=== PATIENT | male | born 1940 | race Caucasian/White ===

== ENCOUNTER 2018-05-10 17:51 | Emergency (ER) | payer BC, MEDICARE ==
--- NOTE | 2018-05-10 18:34 | ER Document Report ---
ED Medical Screen (RME) - General Chief Complaint: Headache Stated Complaint: HEADACHE Time Seen by Provider: 05/10/18 18:29 Notes: Patient is a 77-year-old male with history of atrial fibrillation on Eliquis that presents to the emergency department for chief complaint of palpitations and headache. Patient states he had a headache yesterday evening and took Tylenol, that seemed to help he woke up and the headache was still present so he took some more Tylenol and has dissipated to a degree, he went to see his primary care office, and today he was noted to have a fast heart rate on EKG so they advised him to come to the ED, he states his usual heart rates in the 70s, he was in the point he is in the office. ROS: Other than noted above, the 12 point review of systems was reviewed with the patient and were negative, all pertinent findings are included in the HPI. PHYSICAL EXAMINATION: Vital signs reviewed. GENERAL: Well-appearing, well-nourished and in no acute distress. HEAD: Atraumatic, normocephalic. EYES: Pupils equal round extraocular movements intact, conjunctiva are normal. ENT: Nares patent NECK: Normal range of motion CV: Heart rate tachycardic, irregular rhythm. LUNGS: No respiratory distress Musculoskeletal: Normal range of motion NEUROLOGICAL: Normal speech PSYCH: Normal mood, normal affect. MDM: Patient seen and examined for rapid initial assessment. Vital signs reviewed. A comprehensive ED assessment and evaluation of the patient, analysis of test results and completion of the medical decision making process will be conducted by additional ED providers. *Note is created using voice recognition software and may contain spelling, syntax or grammatical errors. TRAVEL OUTSIDE OF THE [place] IN LAST 30 DAYS: No - Related Data Allergies/Adverse Reactions: shellfish derived Allergy (Verified 05/10/18 17:57) Physical Exam - Vital signs Vitals: Temp Pulse Resp BP Pulse Ox 98.4 F 117 H 18 153/91 H 97 05/10/18 18:18 05/10/18 18:18 05/10/18 18:18 05/10/18 18:18 05/10/18 18:18 Course - Vital Signs Vital signs: Temp Pulse Resp BP Pulse Ox 98.4 F 117 H 18 153/91 H 97 05/10/18 18:18 18 18:18 05/10/18 18:18 05/10/18 18:18 05/10/18 18:18
[2018-05-10] MEDS ORDERED: METOPROLOL TARTRATE PF/INJ 5 MG/5 ML SDV IV ONE (18:42)
--- NOTE | 2018-05-10 19:04 | RADIOLOGY REPORT (SQ) ---
EXAM DESCRIPTION: CHEST SINGLE VIEW COMPLETED DATE/TIME: 05/10/2018 6:56 pm REASON FOR STUDY: tachycardia COMPARISON: None. EXAM PARAMETERS: NUMBER OF VIEWS: One view. TECHNIQUE: Single frontal radiographic view of the chest acquired. RADIATION DOSE: NA LIMITATIONS: None. FINDINGS: LUNGS AND PLEURA: No opacities, masses or pneumothorax. No pleural effusion. MEDIASTINUM AND HILAR STRUCTURES: No masses. Contour normal. HEART AND VASCULAR STRUCTURES: Heart normal in size. Normal vasculature. BONES: No acute findings. HARDWARE: None in the chest. OTHER: No other significant finding. IMPRESSION: NO ACUTE RADIOGRAPHIC FINDING IN THE CHEST. TECHNICAL DOCUMENTATION: JOB ID: [id number] [employer]- All Rights Reserved Reading location - IP/workstation name: [email or web address]
--- NOTE | 2018-05-10 19:11 | RADIOLOGY REPORT (SQ) ---
EXAM DESCRIPTION: CT HEAD WITHOUT COMPLETED DATE/TIME: 05/10/2018 7:00 pm REASON FOR STUDY: headache, on eliquis, no injury COMPARISON: None. TECHNIQUE: Axial images acquired through the brain without intravenous contrast. Images reviewed wi th bone, brain and subdural windows. Additional sagittal and coronal reconstructions were generated. Images stored on PACS. All CT scanners at this facility use dose modulation, iterative reconstruction, and/or weight based d osing when appropriate to reduce radiation dose to as low as reasonably achievable (ALARA). [facility]: Dose Right [facility]: CareDose [facility]: Dose Right [facility]: Teradose 4D [facility]: [employer] Mobile RADIATION DOSE: CT Rad equipment meets quality standard of care and radiation dose reduction techniq ues were employed. CTDIvol: 48.5 mGy. DLP: 878 mGy-cm. mGy. LIMITATIONS: None. FINDINGS: VENTRICLES: Normal size and contour. CEREBRUM: No masses. No hemorrhage. No midline shift. No evidence for acute infarction. Normal gra y/white matter differentiation. No areas of low density in the white matter. CEREBELLUM: No masses. No hemorrhage. No alteration of density. No evidence for acute infarction. EXTRAAXIAL SPACES: No fluid collections. No masses. ORBITS AND GLOBE: No intra- or extraconal masses. Normal contour of globe without masses. CALVARIUM: No fracture. PARANASAL SINUSES: No fluid or mucosal thickening. SOFT TISSUES: No mass or hematoma. OTHER: No other significant finding. IMPRESSION: NORMAL BRAIN CT WITHOUT CONTRAST. EVIDENCE OF ACUTE STROKE: NO. COMMENT: Quality ID # [id number]: Final reports with documentation of one or more dose reduction techniques (e.g., Automated exposure control, adjustment of the mA and/or kV according to patient size, use of iterative reconstruction technique) TECHNICAL DOCUMENTATION: JOB ID: [id number] [employer]- All Rights Reserved Reading location - IP/workstation name: [email or web address]
[2018-05-10 20:35] LABS: ABSOLUTE BASOPHILS # (AUTO) 0.1 10^3/uL (0.0-0.2); ABSOLUTE EOSINOPHILS # (AUTO) 0.1 10^3/uL (0.0-0.6); ABSOLUTE LYMPHOCYTES (AUTO) 1.3 10^3/uL (0.5-4.7); ABSOLUTE MONOCYTES (AUTO) 0.7 10^3/uL (0.1-1.4); ABSOLUTE NEUT (AUTO) 7.9 10^3/uL (1.7-8.2); BASOPHILS % (AUTO) 0.7 % (0-2); EOSINOPHILS % (AUTO) 1.5 % (0-6); HEMATOCRIT 42.1 % (37.9-51.0); HEMOGLOBIN 14.7 g/dL (13.5-17.0); LYMPHOCYTES % (AUTO) 12.8 % (13-45); MEAN CORPUSCULAR HEMOGLOBIN 28.8 pg (27.0-33.4); MEAN CORPUSCULAR HGB CONC 34.9 g/dL (32.0-36.0); MEAN CORPUSCULAR VOLUME 83 fl (80-97); MONOCYTES % (AUTO) 7.1 % (3-13); PLATELET COUNT 260 10^3/uL (150-450); RED BLOOD COUNT 5.11 10^6/uL (4.35-5.55); RED CELL DISTRIBUTION WIDTH 14.1 % (11.5-14.0); SEGMENTED NEUTROPHILS % (AUTO) 77.9 % (42-78); TOTAL CELLS COUNTED % (AUTO) 100 %; WHITE BLOOD COUNT 10.2 10^3/uL (4.0-10.5)
[2018-05-10 20:44] LABS: INTERNATIONAL RATION (INR) 1.04; PROTHROMBIN TIME 14.1 SEC (11.4-15.4)
[2018-05-10 20:45] LABS: PARTIAL THROMBOPLASTIN TIME 29.2 SEC (23.5-35.8)
--- NOTE | 2018-05-10 21:04 | EKG REPORT ---
SEVERITY:- ABNORMAL ECG - ATRIAL FLUTTER WITH 2:1 [address] LAD, CONSIDER LEFT ANTERIOR FASCICULAR BLOCK ABNRM R PROG, CONSIDER ASMI OR LEAD PLACEMENT : Confirmed by: Tamia Perea MD 10-May-2018 21:03:38
[2018-05-10 21:18] LABS: ALANINE AMINOTRANSFERASE 25 U/L (21-72); ALBUMIN 4.1 g/dL (3.5-5.0); ALKALINE PHOSPHATASE 46 U/L (38-126); ANION GAP 13 (5-19); ASPARTATE AMINO TRANSFERASE 28 U/L (17-59); BILIRUBIN,DIRECT 0.3 mg/dL (0.0-0.4); BILIRUBIN,TOTAL 0.8 mg/dL (0.2-1.3); BLOOD UREA NITROGEN 14 mg/dL (7-20); CALCIUM 9.3 mg/dL (8.4-10.2); CARBON DIOXIDE 24 mmol/L (22-30); CHLORIDE 99 mmol/L (98-107); GLUCOSE 220 mg/dL (75-110); POTASSIUM 4.5 mmol/L (3.6-5.0); SODIUM 135.8 mmol/L (137-145); TOTAL PROTEIN 6.7 g/dL (6.3-8.2)
--- NOTE | 2018-05-10 21:49 | ER Document Report ---
ED General - General Chief Complaint: Headache Stated Complaint: HEADACHE Time Seen by Provider: 05/10/18 18:29 Notes: Very pleasant 77-year-old male with past medical history of paroxysmal A. fib status post ablation, hypertension, insulin-dependent diabetes mellitus, and diverticulosis presents to the emergency department for headache that started 3 days ago. He said it initially was very severe and was located in the back of his head. He took an aspirin for the pain, went to bed and there were no issues. He woke up and the headache has lingered since then so his daughter who is an internal med doc told him to go to the urgent care. The urgent care then transferred him here. He denies any dizziness, lightheadedness, vision changes, nausea, vomiting, dyspnea, chest pain, any other symptoms. TRAVEL OUTSIDE OF THE [place] IN LAST 30 DAYS: No - Related Data Allergies/Adverse Reactions: shellfish derived Allergy (Verified 05/10/18 17:57) Past Medical History - Social History Smoking Status: Never Smoker Family History: Reviewed & Not Pertinent Patient has suicidal ideation: No Patient has homicidal ideation: No - Past Medical History Cardiac Medical History: Reports: Hx Atrial Fibrillation, Hx Hypertension Renal/ Medical History: Denies: Hx Peritoneal Dialysis Review of Systems - Review of Systems Constitutional: See HPI EENT: See HPI Cardiovascular: See HPI Respiratory: See HPI Gastrointestinal: See HPI Genitourinary: See HPI Male Genitourinary: No symptoms reported Musculoskeletal: No symptoms reported Skin: No symptoms reported Hematologic/Lymphatic: No symptoms reported Neurological/Psychological: No symptoms reported Physical Exam - Vital signs Vitals: Temp Pulse Resp BP Pulse Ox 98.4 F 117 H 18 153/91 H 97 05/10/18 18:18 05/10/18 18:18 05/10/18 18:18 05/10/18 18:18 05/10/18 18:18 - Notes Notes: Reviewed vital signs and nursing note as charted by RN. CONSTITUTIONAL: Well-appearing, well-nourished, acting appropriately for age HEAD: Normocephalic, atraumatic, no swelling EYES: PERRL, Conjunctivae clear, no drainage, EOMI, no scleral icterus ENT: External ears without lesions, External auditory canal is patent, airway patent, mucous membranes pink and moist NECK: Supple, no cervical lymphadenopathy, no masses CARD: Regular rate and rhythm, no murmurs, no rubs, no gallops, capillary refill < 2 seconds, symmetric pulses RESP: The lungs are clear to auscultation bilaterally, no wheezing, no rales, no rhonchi. Respiratory rate and effort are normal, normal chest excursion. No respiratory distress, no retractions, no stridor, no nasal flaring, no accessory muscle use. ABD/GI: Normal bowel sounds, non-distended, soft, non-tender, no rebound, no guarding, no palpable organomegaly EXT: Normal ROM in all joints, non-tender to palpation, no effusions, no edema SKIN: Normal color for age and race, warm, dry, good turgor, no acute lesions noted NEURO: No facial asymmetry, moves all extremities equally, motor and sensory function intact Course - Re-evaluation Re-evalutation: 05/10/18 21:46 77-year-old male with hypertension, paroxysmal A. fib status post ablation who presented in a flutter, IDDM who takes 96 total units of insulin a day, and diverticulosis presents with headache. He was given 5 mg of metoprolol for rapid heart rate of 128 upon initial presentation. Repeat EKG showed a flutter but heart rate reduced to 70. CT head performed and negative for ischemia or bleed. Lab work overall unremarkable, blood glucose 220 on chemistry. Of note EMS did an Accu-Chek and blood glucose was 400. Initial troponin negative, second troponin is being drawn now. 05/10/18 21:49 05/10/18 23:26 Reevaluated patient and he is feeling much better and without a headache. He has 2 negative troponins, negative CT head, and lab work was overall normal. He is currently tachycardic. I discussed his case with Dr. Shah and Dr. Shah recommends giving him a course of metoprolol 25 mg p.o. and monitor to see if his heart rate goes down. 05/11/18 00:28 Heart rate is now ranging between 95 and 105. Patient states he does have close follow-up and does have an upcoming appointment. Patient with a normal neurologic exam, no focal deficits, no ataxia. At this point it is safe for the patient to discharge with close follow-up. - Vital Signs Vital signs: Temp Pulse Resp BP Pulse Ox 98.4 F 117 H 16 139/80 H 96 05/10/18 18:18 05/10/18 18:18 05/10/18 20:20 05/10/18 22:03 05/10/18 22:03 - Laboratory Result Diagrams: 05/10/18 20:20 05/10/18 20:20 Laboratory results interpreted by me: 05/10/18 05/10/18 05/10/18 20:20 20:20 21:40 RDW 14.1 H Lymphocytes % 12.8 L Sodium 135.8 L Glucose 220 H Urine Glucose (UA) >=500 H Ur Leukocyte Esterase SMALL H Discharge - Discharge Clinical Impression: Tachycardia Headache Qualifiers: Headache type: unspecified Headache chronicity pattern: acute headache Intractability: not intractable Qualified Code(s): R51 - Headache Atrial flutter Qualifiers: Atrial flutter type: unspecified Qualified Code(s): I48.92 - Unspecified atrial flutter Condition: Good Disposition: HOME, SELF-CARE Instructions: Headache ([facility]), Atrial Fibrillation ([facility]) Additional Instructions: You are seen in the emergency department this evening for headache. Upon arrival your in a heart rhythm and on his atrial flutter were given medication to slow down your rate. You are also given a medication taken by mouth called metoprolol that also helps to lower your heart rate. It is very important to call your primary doctor tomorrow in follow-up and let them know that you are in the emergency department and that you need to be seen for follow-up care. If you develop any lightheadedness, dizziness, weakness on one side, severe headache, shortness of breath, chest pain, nausea, vomiting please immediately return to the emergency department.
[2018-05-10 22:22] VITALS: BP 139/80
[2018-05-10 22:29] LABS: APPEARANCE,URINE CLEAR; BILIRUBIN,URINE NEGATIVE (NEGATIVE); COLOR,URINE STRAW; GLUCOSE, URINE >=500 mg/dL (NEGATIVE); KETONES,URINE NEGATIVE (NEGATIVE); LEUKOCYTE ESTERASE,URINE SMALL (NEGATIVE); NITRITE,URINE NEGATIVE (NEGATIVE); PROTEIN,URINE NEGATIVE (NEGATIVE); URINE SPECIFIC GRAVITY 1.009; UROBILINOGEN,URINE NEGATIVE mg/dL (<2.0)
[2018-05-10] MEDS ORDERED: METOPROLOL TARTRATE 25 MG TABLET PO ONE (23:28)
[2018-05-11] MEDS ORDERED: METOPROLOL TARTRATE 50 MG TABLET PO ONE (00:38)
== END 2018-05-11 01:02 | disposition home or self-care (01) ==
LOC: ER 17:51
DX: R51 Headache (principal); R00.0 Tachycardia, unspecified; I48.92 Unspecified atrial flutter; I48.91 Unspecified atrial fibrillation; I10 Essential (primary) hypertension; E11.9 Type 2 diabetes mellitus without complications; Z79.4 Long term (current) use of insulin
CPT/HCPCS: 93005; 99285; 96374; 36415; 82962; 85025; 85610; 85730; 80053; 81001; 84484; 71045; 70450; 93010; J3490

== ENCOUNTER 2018-09-08 14:36 | Inpatient (IN) | payer BC, MEDICARE ==
[2018-09-08] MEDS ORDERED: NORMAL SALINE 1000 ML 1,000 ML IV ONE (15:12)
[2018-09-08] MEDS ORDERED: ONDANSETRON HCL INJ/PF 4 MG/2 ML SDV IV ONE (15:12)
--- NOTE | 2018-09-08 15:13 | ER Document Report ---
ED Medical Screen (RME) - General Chief Complaint: Abdominal Pain Stated Complaint: ABDOMINAL PAIN Time Seen by Provider: 09/08/18 15:05 TRAVEL OUTSIDE OF THE [place] IN LAST 30 DAYS: No - HPI Notes: 09/08/18 15:11 Patient is a 78-year-old male with history of A. fib and on Eliquis, insulin dependant DM, hypertension who presents to the emergency department complaining of abdominal distention, nausea/vomiting that began over the past couple days. Denies SANTOS, fever, neck pain, URI, CP, SOB, or rash. I have treated and performed a rapid initial assessment of this patient. A comprehensive ED assessment and evaluation of the patient, analysis of test results and completion of medical decision making process will be conducted by additional ED providers. PHYSICAL EXAMINATION: GENERAL: Well-appearing, well-nourished and in no acute distress. A&Ox4. Answers questions appropriately. LUNGS: Breath sounds clear to auscultation bilaterally and equal. No wheezes rales or rhonchi. HEART: Regular rate and rhythm without murmurs, rubs, gallops. ABDOMEN: + distention and generalized tenderness. BS present - Related Data Allergies/Adverse Reactions: shellfish derived Allergy (Verified 09/08/18 14:37) Past Medical History - Social History Chew tobacco use (# tins/day): No Frequency of alcohol use: None Drug Abuse: None, Prescription drugs - Past Medical History Cardiac Medical History: Reports: Hx Atrial Fibrillation, Hx Hypertension Endocrine Medical History: Reports: Hx Diabetes Mellitus Type 2 Renal/ Medical History: Denies: Hx Peritoneal Dialysis GI Medical History: Reports: Hx Hiatal Hernia Past Surgical History: Reports: Hx Bowel Surgery - 1999 Physical Exam - Vital signs Vitals: Temp Pulse Resp BP Pulse Ox 97.5 F 146 H 15 138/91 H 97 09/08/18 14:41 09/08/18 14:41 09/08/18 14:41 09/08/18 14:41 09/08/18 14:41 Course - Vital Signs Vital signs: Temp Pulse Resp BP Pulse Ox 97.5 F 146 H 15 138/91 H 97 09/08/18 14:41 09/08/18 14:41 09/08/18 14:41 09/08/18 14:41 09/08/18 14:41
[2018-09-08 15:57] LABS: ABSOLUTE LYMPHOCYTES (AUTO) 0.6 10^3/uL (0.5-4.7); ABSOLUTE MONOCYTES (AUTO) 0.6 10^3/uL (0.1-1.4); ABSOLUTE NEUT (AUTO) 4.8 10^3/uL (1.7-8.2); BASOPHILS % (AUTO) 0.4 % (0-2); EOSINOPHILS % (AUTO) 0.6 % (0-6); HEMATOCRIT 41.5 % (37.9-51.0); HEMOGLOBIN 14.4 g/dL (13.5-17.0); MEAN CORPUSCULAR HEMOGLOBIN 28.5 pg (27.0-33.4); MEAN CORPUSCULAR HGB CONC 34.7 g/dL (32.0-36.0); MEAN CORPUSCULAR VOLUME 82 fl (80-97); MONOCYTES % (AUTO) 10.4 % (3-13); PLATELET COUNT 248 10^3/uL (150-450); RED BLOOD COUNT 5.05 10^6/uL (4.35-5.55); RED CELL DISTRIBUTION WIDTH 14.3 % (11.5-14.0); SEGMENTED NEUTROPHILS % (AUTO) 78.6 % (42-78); TOTAL CELLS COUNTED % (AUTO) 100 %; WHITE BLOOD COUNT 6.1 10^3/uL (4.0-10.5)
[2018-09-08 16:12] LABS: INTERNATIONAL RATION (INR) 1.14; PROTHROMBIN TIME 15.2 SEC (11.4-15.4)
[2018-09-08 16:13] LABS: PARTIAL THROMBOPLASTIN TIME 29.3 SEC (23.5-35.8)
[2018-09-08 16:25] LABS: ALANINE AMINOTRANSFERASE 28 U/L (21-72); ALKALINE PHOSPHATASE 47 U/L (38-126); ANION GAP 14 (5-19); ASPARTATE AMINO TRANSFERASE 28 U/L (17-59); BILIRUBIN,DIRECT 0.3 mg/dL (0.0-0.4); BILIRUBIN,TOTAL 0.7 mg/dL (0.2-1.3); BLOOD UREA NITROGEN 16 mg/dL (7-20); CALCIUM 9.7 mg/dL (8.4-10.2); CARBON DIOXIDE 26 mmol/L (22-30); CHLORIDE 97 mmol/L (98-107); GLUCOSE 216 mg/dL (75-110); LIPASE 119.6 U/L (23-300); POTASSIUM 4.1 mmol/L (3.6-5.0); SODIUM 136.6 mmol/L (137-145); TOTAL PROTEIN 6.6 g/dL (6.3-8.2)
--- NOTE | 2018-09-08 16:56 | RADIOLOGY REPORT (SQ) ---
EXAM DESCRIPTION: ACUTE ABDOMEN SERIES COMPLETED DATE/TIME: 09/08/2018 4:48 pm REASON FOR STUDY: abd distention/pain, tachycardic COMPARISON: None. NUMBER OF VIEWS: Three views. TECHNIQUE: Frontal chest, supine abdomen and upright/decubitus abdomen radiographic images acquired. LIMITATIONS: None. FINDINGS: CHEST: Lungs clear of infiltrates. FREE AIR: None. No abnormal gas collections. BOWEL GAS PATTERN: There multiple dilated small bowel loops with air-fluid levels. No obvious coloni c distention. CALCIFICATIONS: No suspicious calcifications. HARDWARE: None in the abdomen. SOFT TISSUES: No gross mass or suggestion of organomegaly. BONES: No acute fracture. No worrisome bone lesions. OTHER: No other significant finding. IMPRESSION: Proximal colonic versus small bowel obstruction. TECHNICAL DOCUMENTATION: JOB ID: [id number] [email or web address]- All Rights Reserved Reading location - IP/workstation name: [email or web address]
[2018-09-08 19:05] LABS: APPEARANCE,URINE CLOUDY; BILIRUBIN,URINE NEGATIVE (NEGATIVE); CALCIUM OXALATE CRYSTALS,URINE MODERATE /HPF; COLOR,URINE AMBER; GLUCOSE, URINE NEGATIVE (NEGATIVE); KETONES,URINE NEGATIVE (NEGATIVE); LEUKOCYTE ESTERASE,URINE NEGATIVE (NEGATIVE); NITRITE,URINE NEGATIVE (NEGATIVE); PROTEIN,URINE NEGATIVE (NEGATIVE); URINE SPECIFIC GRAVITY 1.024; UROBILINOGEN,URINE NEGATIVE mg/dL (<2.0)
[2018-09-08] MEDS ORDERED: MORPHINE SULFATE 10 MG/ML INJ IV PRN ×2 (19:29→22:55)
--- NOTE | 2018-09-08 19:31 | ER Document Report ---
ED General - General Chief Complaint: Abdominal Pain Stated Complaint: ABDOMINAL PAIN Time Seen by Provider: 09/08/18 15:05 Notes: Patient is a 78-year-old male with history of A. fib and on Eliquis, insulin dependant DM, hypertension who presents to the emergency department complaining of abdominal distention, nausea/vomiting that began over the past couple days. Patient reports a history of a partial small bowel versus colonic resection secondary to appendicitis approximately 10-15 years ago. He reports that he has had recurrent episodes of bowel obstruction since that time both occurrences which were able to be managed nonoperatively with NG tube placement and IV hydration. He describes his abdominal distention and pain as being moderate to severe, constant in nature. It is a throbbing, bloating, aching pain. Nothing seems to worsen the pain, states when he passes gas from above or below it seems to improve his pain. Has not seen his primary doctor regarding today's concerns. TRAVEL OUTSIDE OF THE [place] IN LAST 30 DAYS: No - Related Data Allergies/Adverse Reactions: shellfish derived Allergy (Verified 09/08/18 14:37) Past Medical History - General Information source: Patient - Social History Smoking Status: Former Smoker Chew tobacco use (# tins/day): No Frequency of alcohol use: None Drug Abuse: None Family History: Reviewed & Not Pertinent Patient has suicidal ideation: No Patient has homicidal ideation: No - Past Medical History Cardiac Medical History: Reports: Hx Atrial Fibrillation, Hx Hypertension Endocrine Medical History: Reports: Hx Diabetes Mellitus Type 2 Renal/ Medical History: Denies: Hx Peritoneal Dialysis GI Medical History: Reports: Hx Hiatal Hernia Past Surgical History: Reports: Hx Bowel Surgery - 1999 Review of Systems - Review of Systems Notes: Constitutional: Negative for fever. HENT: Negative for sore throat. Eyes: Negative for visual changes. Cardiovascular: Negative for chest pain. Respiratory: Negative for shortness of breath. Gastrointestinal: Positive for abdominal pain and vomiting Genitourinary: Negative for dysuria. Musculoskeletal: Negative for back pain. Skin: Negative for rash. Neurological: Negative for headaches, weakness or numbness. 10 point ROS negative except as marked above and in HPI. Physical Exam - Vital signs Vitals: Temp Pulse Resp BP Pulse Ox 97.5 F 146 H 15 138/91 H 97 09/08/18 14:41 09/08/18 14:41 09/08/18 14:41 09/08/18 14:41 09/08/18 14:41 Interpretation: Tachycardic Notes: PHYSICAL EXAMINATION: GENERAL: Appears moderately uncomfortable but in no acute distress HEAD: Atraumatic, normocephalic. EYES: Pupils equal round and reactive to light, extraocular movements intact, sclera anicteric, conjunctiva are normal. ENT: nares patent, oropharynx clear without exudates. Moist mucous membranes. NECK: Normal range of motion, supple without lymphadenopathy LUNGS: Breath sounds clear to auscultation bilaterally and equal. No wheezes rales or rhonchi. HEART: Irregular regular tachycardia without murmurs ABDOMEN: Somewhat firm, protuberant abdomen with global tenderness more worse to the left upper and left lower quadrant and the remainder of the abdomen. No rebound tenderness, no guarding. Tympany on percussion. EXTREMITIES: Normal range of motion, no pitting or edema. No cyanosis. NEUROLOGICAL: No focal neurological deficits. Moves all extremities spontaneously and on command. PSYCH: Normal mood, normal affect. SKIN: Warm, Dry, normal turgor, no rashes or lesions noted. Course - Re-evaluation Re-evalutation: 09/08/18 19:29 Patient presents with signs and symptoms most consistent with probable mechanical bowel obstruction. Has a history of partial colonic resection secondary to appendicitis in the remote past and has had 2 bouts of bowel obstruction since that time both of which are managed nonoperatively. On abdominal exam the patient's abdomen is visibly distended, globally tender, prominent tympany. No rebound or guarding. Patient is undergoing CT scan of the abdomen and pelvis with IV and oral contrast for definitive diagnosis. IV fluid resuscitation, analgesia and antiemetics have been provided. 09/08/18 22:06 CT scan does confirm likely small bowel obstruction versus prominent ileus. NG tube will be inserted. I have discussed with Dr. Acevedo and requested admission of this patient - Vital Signs Vital signs: Temp Pulse Resp BP Pulse Ox 98.4 F 115 H 17 139/73 H 95 09/09/18 00:54 09/09/18 00:54 09/09/18 00:54 09/09/18 00:54 09/09/18 00:54 - Laboratory Result Diagrams: 09/08/18 15:47 09/08/18 15:47 Laboratory results interpreted by me: 09/08/18 09/08/18 09/08/18 15:47 15:47 18:50 RDW 14.3 H Seg Neutrophils % 78.6 H Lymphocytes % 10.0 L Sodium 136.6 L Chloride 97 L Glucose 216 H Urine Ascorbic Acid 40 H - Diagnostic Test Radiology reviewed: Image reviewed, Reports reviewed Radiology results interpreted by me: 09/08/18 19:31 Abdominal x-ray: Consistent with bowel obstruction Discharge - Discharge Clinical Impression: Small bowel obstruction Abdominal pain Qualifiers: Abdominal location: unspecified location Qualified Code(s): R10.9 - Unspecified abdominal pain Nausea and vomiting Qualifiers: Vomiting type: unspecified Vomiting Intractability: non-intractable Qualified Code(s): R11.2 - Nausea with vomiting, unspecified Condition: Fair Disposition: ADMITTED INPATIENT Admitting Provider: Surgicalist Unit Admitted: Surgical Floor
--- NOTE | 2018-09-08 21:37 | RADIOLOGY REPORT (SQ) ---
EXAM DESCRIPTION: [facility]Lex: CT ABDOMEN PELVIS WITH IV CONTRAST CLINICAL HISTORY: 78 years Male; ab pain, vomiting sbo TECHNIQUE: CT of the abdomen and pelvis using intravenous 100 mL Omnipaque [address] scans at this facility use dose modulation, iterative reconstruction, and/or weight based dosing when appropriate to reduce radiation dose to as low as reasonably achievable. COMPARISON: None. FINDINGS: Mild hazy density is partially visualized in the posterior right lower lobe. There is also minimal subsegmental atelectasis in the posterior left lower lobe. Abdomen: Liver: Slightly hypodense. No focal lesion or ductal distention. Gallbladder:Negative Pancreas:Within normal limits Spleen:Within normal limits Right kidney:No hydronephrosis. No focal lesion. Left kidney:No hydronephrosis. No focal lesion. Adrenal glands:Within normal limits Vascular structures: Mild scattered aortic calcifications, without aneurysm or dissection. No major branch occlusion. Pelvis: Small bowel: Multiple distended segments with air-fluid levels, up to 4 cm transverse diameter. Distal small bowel is less distended, although there is not a clear transition point. Appendix: Not identified Colon: Proximal to the splenic flexure is mildly distended. No acute pericolonic edema. There are a few distal diverticula. No free intraperitoneal fluid or air. Prostate: Coarse calcifications. Bladder: Within normal limits. Chronic degenerative changes in the lower lumbar spine. No acute bone findings. IMPRESSION: 1. Numerous distended small bowel segments and mild to moderate proximal colonic distention, without a definite transition point. The distal small bowel is less distended; this could either be a severe ileus or a partial small bowel obstruction. 2. No perforation or abscess. 3. Hazy densities in both lower lobes, likely subsegmental atelectasis. 4. Other chronic findings as described.
[2018-09-08] MEDS ORDERED: METOPROLOL TARTRATE PF/INJ 5 MG/5 ML SDV IV ONE (23:00)
[2018-09-08] MEDS ORDERED: DEXTROSE 50%-WATER 25 GM/50 ML DISP.SYRIN IV PRN ×2 (23:13)
[2018-09-08] MEDS ORDERED: GLUCAGON,HUMAN RECOMB 1 MG INJ SUBCUT PRN (23:13)
[2018-09-08] MEDS ORDERED: DEXTROSE 40% GEL 15 GM TUBE PO PRN ×2 (23:13)
--- NOTE | 2018-09-08 23:13 | PDOC H&P ---
History of Present Illness Admission Date/PCP: 09/08/18 22:51 Patient complains of: abdominal pains History of Present Illness: ELSIE RIVERA is a 78 year old male with history of AFIB on Eliquis,type 2 DM on insulin, Exploratory laparotomy for perforated acute appendicitis and Crohns (1999) c/o abdominal pains yesterday with abdominal distention. Had BM today and passed flatus in ED. However, had one episode of vomiting today. CT scan of abdomen showed partial SBO vs. ileus. Had 2 other episodes of partial small bowel obstruction since his exploratory laparotomy and managed conservatively with NGT and hydration. Able to talk to his daughter who is a Hospitalist on the phone and got some of the history from her. Past Medical History Cardiac Medical History: Reports: Atrial Fibrillation, Hypertension Pulmonary Medical History: Reports: Sleep Apnea Endocrine Medical History: Reports: Diabetes Mellitus Type 2 GI Medical History: Reports: Hiatal Hernia Past Surgical History Past Surgical History: Reports: Other - exploratory laparotomy, appendectomy in 1999 Social History Smoking Status: Former Smoker Family History Family History: Reviewed & Not Pertinent Parental Family History Reviewed: Yes Children Family History Reviewed: No Sibling(s) Family History Reviewed.: No Medication/Allergy Allergies/Adverse Reactions: shellfish derived Allergy (Verified 09/08/18 14:37) Review of Systems Constitutional: PRESENT: other - no fever/chills Eyes: PRESENT: other - no visual/hearing changes Nose, Mouth, and Throat: PRESENT: other - nasal discharge due to allergies/colds past 2 days Cardiovascular: PRESENT: other - no chest pains/cough Gastrointestinal: PRESENT: abdominal pain, vomiting Genitourinary: PRESENT: other - no dysuria Physical Exam Vital Signs: Temp Pulse Resp BP Pulse Ox 97.6 F 145 H 15 138/91 H 94 09/08/18 19:00 09/08/18 15:12 09/08/18 14:41 09/08/18 14:41 09/08/18 15:10 Intake & Output 09/07/18 09/08/18 09/09/18 06:59 06:59 06:59 Intake Total 1000 Balance 1000 Weight 110 kg General appearance: PRESENT: mild distress Head exam: PRESENT: atraumatic Eye exam: PRESENT: conjunctiva pink Mouth exam: PRESENT: moist Neck exam: PRESENT: full ROM Respiratory exam: PRESENT: clear to auscultation marii Cardiovascular exam: PRESENT: irregular rhythm, tachycardia Pulses: PRESENT: normal radial pulses Vascular exam: PRESENT: normal capillary refill GI/Abdominal exam: PRESENT: distended, soft, tenderness - nontender Small umbilical hernia non tender Rectal exam: PRESENT: deferred Extremities exam: PRESENT: full ROM Musculoskeletal exam: PRESENT: ambulatory Neurological exam: PRESENT: alert, oriented to person, oriented to place, oriented to time, oriented to situation Psychiatric exam: PRESENT: appropriate affect Skin exam: PRESENT: normal color, warm Results Laboratory Results: 09/08/18 15:47 09/08/18 15:47 09/08/18 09/08/18 09/08/18 15:47 15:47 18:50 WBC 6.1 RBC 5.05 Hgb 14.4 Hct 41.5 MCV 82 MCH 28.5 MCHC 34.7 RDW 14.3 H Plt Count 248 Seg Neutrophils % 78.6 H Lymphocytes % 10.0 L Monocytes % 10.4 Eosinophils % 0.6 Basophils % 0.4 Absolute Neutrophils 4.8 Absolute Lymphocytes 0.6 Absolute Monocytes 0.6 Absolute Eosinophils 0.0 Absolute Basophils 0.0 Sodium 136.6 L Potassium 4.1 Chloride 97 L Carbon Dioxide 26 Anion Gap 14 BUN 16 Creatinine 0.94 Est GFR ( Amer) > 60 Est GFR (Non-Af Amer) > 60 Glucose 216 H Calcium 9.7 Total Bilirubin 0.7 AST 28 ALT 28 Alkaline Phosphatase 47 Total Protein 6.6 Albumin 4.0 Lipase 119.6 Urine Color GAIL Urine Appearance CLOUDY Urine pH 6.0 Ur Specific [place] 1.024 Urine Protein NEGATIVE Urine Glucose (UA) NEGATIVE Urine Ketones NEGATIVE Urine Blood NEGATIVE Urine Nitrite NEGATIVE Ur Leukocyte Esterase NEGATIVE Urine WBC (Auto) 2 Urine RBC (Auto) 3 09/08/18 15:47 Troponin I < 0.012 Impressions: Abdomen/Pelvis CT 09/08/18 00:00 IMPRESSION: 1. Numerous distended small bowel segments and mild to moderate proximal colonic distention, without a definite transition point. The distal small bowel is less distended; this could either be a severe ileus or a partial small bowel obstruction. 2. No perforation or abscess. 3. Hazy densities in both lower lobes, likely subsegmental atelectasis. 4. Other chronic findings as described. Acute Abdomen Series 09/08/18 15:10 IMPRESSION: Proximal colonic versus small bowel obstruction. Assessment & Plan - Diagnosis (1) Type 2 diabetes mellitus Is this a current diagnosis for this admission?: Yes (2) Afib Qualifiers: Atrial fibrillation type: chronic Qualified Code(s): I48.2 - Chronic atrial fibrillation Is this a current diagnosis for this admission?: Yes (3) Sleep apnea Is this a current diagnosis for this admission?: Yes - Time Time Spent: 30 to 50 Minutes - Inpatient Certification Medical Necessity: Significant Comorbidiites Make Outpatient Treatment Too Risky, Need Close Monitoring Due to Risk of Patient Decompensation, Need For IV Fluids, Need For Continuous Telemetry Monitoring, Need for Pain Control, Risk of Complication if Not Cared For in Hospital - Plan Summary Plan Summary: NGT to LIS Hydrate Stop Eliquis Continue IV Lopressor BS monitoring with Sliding scale Hospitalist consult Possible Small bowel series tomorrow
[2018-09-08] MEDS ORDERED: ONDANSETRON HCL INJ/PF 4 MG/2 ML SDV IV PRN (23:20)
[2018-09-09] MEDS: NORMAL SALINE 1000 ML 1,000 ML IV PRN ×2 (01:30→10:52)
[2018-09-09] MEDS: ACETAMINOPHEN 1,000 MG/100 ML RTUPB IV SCH ×4 (01:34→17:46)
[2018-09-09] MEDS ORDERED: DEXTROSE 50%-WATER 25 GM/50 ML DISP.SYRIN IV PRN ×2 (03:00)
[2018-09-09] MEDS ORDERED: DEXTROSE 40% GEL 15 GM TUBE PO PRN ×3 (03:00→08:30)
[2018-09-09] MEDS ORDERED: GLUCAGON,HUMAN RECOMB 1 MG INJ IM PRN ×2 (03:00→08:30)
[2018-09-09] MEDS: HEPARIN SOD (PORCINE) 5,000 UNIT/ML 1 ML SYRINGE SUBCUT SCH ×3 (05:47→22:45)
[2018-09-09] MEDS ORDERED: INSULIN LISPRO 100 UNIT/ML 3 ML VIAL SUBCUT SCH (06:00)
[2018-09-09 06:12] LABS: ABSOLUTE LYMPHOCYTES (AUTO) 0.6 10^3/uL (0.5-4.7); ABSOLUTE MONOCYTES (AUTO) 0.8 10^3/uL (0.1-1.4); ABSOLUTE NEUT (AUTO) 5.2 10^3/uL (1.7-8.2); BASOPHILS % (AUTO) 0.2 % (0-2); HEMATOCRIT 39.2 % (37.9-51.0); HEMOGLOBIN 13.6 g/dL (13.5-17.0); LYMPHOCYTES % (AUTO) 9.5 % (13-45); MEAN CORPUSCULAR HEMOGLOBIN 28.8 pg (27.0-33.4); MEAN CORPUSCULAR HGB CONC 34.8 g/dL (32.0-36.0); MEAN CORPUSCULAR VOLUME 83 fl (80-97); MONOCYTES % (AUTO) 11.9 % (3-13); PLATELET COUNT 225 10^3/uL (150-450); RED BLOOD COUNT 4.74 10^6/uL (4.35-5.55); RED CELL DISTRIBUTION WIDTH 14.6 % (11.5-14.0); SEGMENTED NEUTROPHILS % (AUTO) 78.4 % (42-78); TOTAL CELLS COUNTED % (AUTO) 100 %; WHITE BLOOD COUNT 6.6 10^3/uL (4.0-10.5)
[2018-09-09 06:34] LABS: ALANINE AMINOTRANSFERASE 28 U/L (21-72); ALBUMIN 3.7 g/dL (3.5-5.0); ALKALINE PHOSPHATASE 49 U/L (38-126); ANION GAP 11 (5-19); ASPARTATE AMINO TRANSFERASE 23 U/L (17-59); BILIRUBIN,DIRECT 0.3 mg/dL (0.0-0.4); BLOOD UREA NITROGEN 16 mg/dL (7-20); CALCIUM 9.4 mg/dL (8.4-10.2); CARBON DIOXIDE 27 mmol/L (22-30); CHLORIDE 98 mmol/L (98-107); GLUCOSE 227 mg/dL (75-110); LIPASE 21.1 U/L (23-300); POTASSIUM 4.7 mmol/L (3.6-5.0); SODIUM 135.6 mmol/L (137-145); TOTAL PROTEIN 6.2 g/dL (6.3-8.2)
[2018-09-09] MEDS ORDERED: DEXTROSE 50%-WATER SYRINGE 12.5 GM/25 ML DOSE IV PRN (08:30)
[2018-09-09] MEDS ORDERED: DEXTROSE 40% GEL 15 GM TUBE X 2 PO PRN (08:30)
[2018-09-09] MEDS ORDERED: DEXTROSE 50%-WATER SYRINGE 25 GM/50 ML DOSE IV PRN (08:30)
[2018-09-09] MEDS: METOPROLOL TARTRATE PF/INJ 5 MG/5 ML SDV IV SCH ×2 (10:51→22:44)
--- NOTE | 2018-09-09 11:03 | RADIOLOGY REPORT (SQ) ---
EXAM DESCRIPTION: ACUTE ABDOMEN SERIES COMPLETED DATE/TIME: 09/09/2018 10:08 am REASON FOR STUDY: Follow up of SBO COMPARISON: CT yesterday. Radiographs yesterday. NUMBER OF VIEWS: Three views. TECHNIQUE: Frontal chest, supine abdomen and upright/decubitus abdomen radiographic images acquired. LIMITATIONS: None. FINDINGS: CHEST: Low volumes with basilar subsegmental atelectasis. Nasogastric tube down. FREE AIR: None. No abnormal gas collections. BOWEL GAS PATTERN: Persistently abnormal bowel gas pattern with diffuse distended large and small bow el. Small bowel gas and fluid filled with differential fluid levels. Similar appearance to prior. CALCIFICATIONS: No suspicious calcifications. HARDWARE: Nasogastric tube. SOFT TISSUES: No gross mass or suggestion of organomegaly. BONES: No acute fracture. No worrisome bone lesions. OTHER: No other significant finding. IMPRESSION: Findings remain consistent with small bowel obstruction, similar appearance compared to yesterday. Nasogastric tube appropriate. No free air. TECHNICAL DOCUMENTATION: JOB ID: [id number] [employer]- All Rights Reserved Reading location - IP/workstation name: [email or web address]
[2018-09-09] MEDS: INSULIN LISPRO 100 UNIT/ML 3 ML VIAL SUBCUT SCH ×2 (11:33→15:58)
--- NOTE | 2018-09-09 13:12 | EKG REPORT ---
SEVERITY:- ABNORMAL ECG - ATRIAL FLUTTER/FIBRILLATION, A-RATE 294 LEFT ANTERIOR FASCICULAR BLOCK LOW VOLTAGE IN FRONTAL LEADS NONSPECIFIC T ABNORMALITIES, LATERAL LEADS : Confirmed by: Armando Harkins 09-Sep-2018 13:12:20
--- NOTE | 2018-09-09 13:26 | PDOC PROGRESS REPORT ---
Subjective Progress Note for:: 09/09/18 Subjective:: c/o abdominal bloating, no flatus, no abd pain Reason For Visit: PARTIAL SMALL BOWEL OBSTRUCTION, AFIB Physical Exam Vital Signs: Temp Pulse Resp BP Pulse Ox 97.5 F 108 H 18 136/71 H 98 09/09/18 07:46 09/09/18 07:46 09/09/18 07:46 09/09/18 07:46 09/09/18 07:46 Intake & Output 09/08/18 09/09/18 09/10/18 06:59 06:59 06:59 Intake Total 1200 937 Output Total 1200 Balance 0 937 Weight 99.1 kg General appearance: PRESENT: no acute distress Head exam: PRESENT: normocephalic Eye exam: PRESENT: EOMI Mouth exam: PRESENT: moist Neck exam: PRESENT: full ROM Respiratory exam: PRESENT: clear to auscultation marii Cardiovascular exam: PRESENT: RRR Pulses: PRESENT: normal radial pulses, normal femoral pulses Vascular exam: PRESENT: normal capillary refill GI/Abdominal exam: PRESENT: other - abd distended, tympanitic, non tender still with high ng output Rectal exam: PRESENT: deferred Extremities exam: PRESENT: full ROM Musculoskeletal exam: PRESENT: full ROM Neurological exam: PRESENT: alert, awake, oriented to person, oriented to place, oriented to time, oriented to situation Psychiatric exam: PRESENT: appropriate affect Skin exam: PRESENT: dry Results Laboratory Results: 09/09/18 05:16 09/09/18 05:16 09/08/18 09/08/18 09/08/18 15:47 15:47 18:50 WBC 6.1 RBC 5.05 Hgb 14.4 Hct 41.5 MCV 82 MCH 28.5 MCHC 34.7 RDW 14.3 H Plt Count 248 Seg Neutrophils % 78.6 H Lymphocytes % 10.0 L Monocytes % 10.4 Eosinophils % 0.6 Basophils % 0.4 Absolute Neutrophils 4.8 Absolute Lymphocytes 0.6 Absolute Monocytes 0.6 Absolute Eosinophils 0.0 Absolute Basophils 0.0 Sodium 136.6 L Potassium 4.1 Chloride 97 L Carbon Dioxide 26 Anion Gap 14 BUN 16 Creatinine 0.94 Est GFR ( Amer) > 60 Est GFR (Non-Af Amer) > 60 Glucose 216 H Calcium 9.7 Total Bilirubin 0.7 AST 28 ALT 28 Alkaline Phosphatase 47 Total Protein 6.6 Albumin 4.0 Lipase 119.6 Urine Color GAIL Urine Appearance CLOUDY Urine pH 6.0 Ur Specific [place] 1.024 Urine Protein NEGATIVE Urine Glucose (UA) NEGATIVE Urine Ketones NEGATIVE Urine Blood NEGATIVE Urine Nitrite NEGATIVE Ur Leukocyte Esterase NEGATIVE Urine WBC (Auto) 2 Urine RBC (Auto) 3 09/09/18 09/09/18 05:16 05:16 WBC 6.6 RBC 4.74 Hgb 13.6 Hct 39.2 MCV 83 MCH 28.8 MCHC 34.8 RDW 14.6 H Plt Count 225 Seg Neutrophils % 78.4 H Lymphocytes % 9.5 L Monocytes % 11.9 Eosinophils % 0.0 Basophils % 0.2 Absolute Neutrophils 5.2 Absolute Lymphocytes 0.6 Absolute Monocytes 0.8 Absolute Eosinophils 0.0 Absolute Basophils 0.0 Sodium 135.6 L Potassium 4.7 Chloride 98 Carbon Dioxide 27 Anion Gap 11 BUN 16 Creatinine 0.93 Est GFR ( Amer) > 60 Est GFR (Non-Af Amer) > 60 Glucose 227 H Calcium 9.4 Total Bilirubin 1.0 AST 23 ALT 28 Alkaline Phosphatase 49 Total Protein 6.2 L Albumin 3.7 Lipase 21.1 L Urine Color Urine Appearance Urine pH Ur Specific [place] Urine Protein Urine Glucose (UA) Urine Ketones Urine Blood Urine Nitrite Ur Leukocyte Esterase Urine WBC (Auto) Urine RBC (Auto) 09/08/18 15:47 Troponin I < 0.012 Impressions: Abdomen/Pelvis CT 09/08/18 00:00 IMPRESSION: 1. Numerous distended small bowel segments and mild to moderate proximal colonic distention, without a definite transition point. The distal small bowel is less distended; this could either be a severe ileus or a partial small bowel obstruction. 2. No perforation or abscess. 3. Hazy densities in both lower lobes, likely subsegmental atelectasis. 4. Other chronic findings as described. Acute Abdomen Series 09/09/18 07:00 IMPRESSION: Findings remain consistent with small bowel obstruction, similar appearance compared to yesterday. Nasogastric tube appropriate. No free air. Status: Imported from PACS Assessment & Plan - Plan Summary Plan Summary: still no flatus high ng op, over 200cc in 4 hrs will cont ng suction today consider small bowel series when ng op decreases.
--- NOTE | 2018-09-09 15:05 | PDOC PROGRESS REPORT ---
Subjective Progress Note for:: 09/09/18 Subjective:: No adverse events overnight. Blood sugars have been mid to upper 200s. Heart rate remains controlled. Blood pressure is within the normal range. Reason For Visit: PARTIAL SMALL BOWEL OBSTRUCTION, AFIB Physical Exam Vital Signs: Temp Pulse Resp BP Pulse Ox 97.5 F 96 18 136/68 H 97 09/09/18 07:46 09/09/18 11:30 09/09/18 11:30 09/09/18 11:30 09/09/18 11:30 Intake & Output 09/08/18 09/09/18 09/10/18 06:59 06:59 06:59 Intake Total 1200 1037 Output Total 1200 Balance 0 1037 Weight 99.1 kg General appearance: PRESENT: cooperative, disheveled, mild distress Respiratory exam: PRESENT: clear to auscultation marii, symmetrical, unlabored. ABSENT: accessory muscle use, crackles, prolonged expiratory phas, rhonchi, tachypnea, wheezes Cardiovascular exam: PRESENT: irregular rhythm Pulses: PRESENT: normal carotid pulses Vascular exam: PRESENT: normal capillary refill GI/Abdominal exam: PRESENT: distended, hypoactive bowel sounds, tenderness - Mild. ABSENT: guarding, rebound, soft Extremities exam: ABSENT: clubbing, pedal edema Musculoskeletal exam: PRESENT: normal inspection. ABSENT: deformity Neurological exam: PRESENT: alert, awake, oriented to person, oriented to place, oriented to time, oriented to situation Psychiatric exam: PRESENT: flat affect Skin exam: PRESENT: dry, warm Results Laboratory Results: 09/09/18 05:16 09/09/18 05:16 09/08/18 09/08/18 09/08/18 15:47 15:47 18:50 WBC 6.1 RBC 5.05 Hgb 14.4 Hct 41.5 MCV 82 MCH 28.5 MCHC 34.7 RDW 14.3 H Plt Count 248 Seg Neutrophils % 78.6 H Lymphocytes % 10.0 L Monocytes % 10.4 Eosinophils % 0.6 Basophils % 0.4 Absolute Neutrophils 4.8 Absolute Lymphocytes 0.6 Absolute Monocytes 0.6 Absolute Eosinophils 0.0 Absolute Basophils 0.0 Sodium 136.6 L Potassium 4.1 Chloride 97 L Carbon Dioxide 26 Anion Gap 14 BUN 16 Creatinine 0.94 Est GFR ( Amer) > 60 Est GFR (Non-Af Amer) > 60 Glucose 216 H Calcium 9.7 Total Bilirubin 0.7 AST 28 ALT 28 Alkaline Phosphatase 47 Total Protein 6.6 Albumin 4.0 Lipase 119.6 Urine Color GAIL Urine Appearance CLOUDY Urine pH 6.0 Ur Specific [place] 1.024 Urine Protein NEGATIVE Urine Glucose (UA) NEGATIVE Urine Ketones NEGATIVE Urine Blood NEGATIVE Urine Nitrite NEGATIVE Ur Leukocyte Esterase NEGATIVE Urine WBC (Auto) 2 Urine RBC (Auto) 3 09/09/18 09/09/18 05:16 05:16 WBC 6.6 RBC 4.74 Hgb 13.6 Hct 39.2 MCV 83 MCH 28.8 MCHC 34.8 RDW 14.6 H Plt Count 225 Seg Neutrophils % 78.4 H Lymphocytes % 9.5 L Monocytes % 11.9 Eosinophils % 0.0 Basophils % 0.2 Absolute Neutrophils 5.2 Absolute Lymphocytes 0.6 Absolute Monocytes 0.8 Absolute Eosinophils 0.0 Absolute Basophils 0.0 Sodium 135.6 L Potassium 4.7 Chloride 98 Carbon Dioxide 27 Anion Gap 11 BUN 16 Creatinine 0.93 Est GFR ( Amer) > 60 Est GFR (Non-Af Amer) > 60 Glucose 227 H Calcium 9.4 Total Bilirubin 1.0 AST 23 ALT 28 Alkaline Phosphatase 49 Total Protein 6.2 L Albumin 3.7 Lipase 21.1 L Urine Color Urine Appearance Urine pH Ur Specific [place] Urine Protein Urine Glucose (UA) Urine Ketones Urine Blood Urine Nitrite Ur Leukocyte Esterase Urine WBC (Auto) Urine RBC (Auto) 09/08/18 15:47 Troponin I < 0.012 Impressions: Abdomen/Pelvis CT 09/08/18 00:00 IMPRESSION: 1. Numerous distended small bowel segments and mild to moderate proximal colonic distention, without a definite transition point. The distal small bowel is less distended; this could either be a severe ileus or a partial small bowel obstruction. 2. No perforation or abscess. 3. Hazy densities in both lower lobes, likely subsegmental atelectasis. 4. Other chronic findings as described. Acute Abdomen Series 09/09/18 07:00 IMPRESSION: Findings remain consistent with small bowel obstruction, similar appearance compared to yesterday. Nasogastric tube appropriate. No free air. Assessment and Plan - Diagnosis (1) Afib Qualifiers: Atrial fibrillation type: chronic Qualified Code(s): I48.2 - Chronic atrial fibrillation Is this a current diagnosis for this admission?: Yes Plan: Heart rate is in a good range at this time. Can resume Eliquis once he is able to take p.o. (2) Type 2 diabetes mellitus Qualifiers: Diabetes mellitus termite treater helper insulin use: with termite treater helper use Diabetes mellitus complication status: with hyperglycemia Qualified Code(s): E11.65 - Type 2 diabetes mellitus with hyperglycemia; Z79.4 - oil heaterman (current) use of insulin Is this a current diagnosis for this admission?: Yes Plan: Currently on a sliding scale. Normally takes combination Humalog 75/25 at home, 50 units twice a day. In addition to his sliding scale, I am adding a small amount of Lantus to try to help control his blood sugars a bit more. - Time Time Spent with patient: 15-24 minutes
[2018-09-09] MEDS ORDERED: INSULIN GLARGINE,HUM.REC.ANLOG 1,000 UNIT/10 ML VIAL SUBCUT SCH (22:00)
[2018-09-10] MEDS: INSULIN LISPRO 100 UNIT/ML 3 ML VIAL SUBCUT SCH ×5 (01:17→17:44)
[2018-09-10] MEDS: ACETAMINOPHEN 1,000 MG/100 ML RTUPB IV SCH ×4 (01:18→18:00)
[2018-09-10] MEDS: NORMAL SALINE 1000 ML 1,000 ML IV PRN ×2 (01:19→18:02)
[2018-09-10] MEDS: HEPARIN SOD (PORCINE) 5,000 UNIT/ML 1 ML SYRINGE SUBCUT SCH ×3 (05:29→22:31)
[2018-09-10] MEDS: METOPROLOL TARTRATE PF/INJ 5 MG/5 ML SDV IV SCH ×2 (10:50→22:32)
--- NOTE | 2018-09-10 15:44 | PDOC PROGRESS REPORT ---
Subjective Progress Note for:: 09/10/18 Subjective:: No adverse events overnight. No new complaints. The NG tube was clamped whenever I saw him this morning. He was getting ready to get up and go for a walk. He says his belly feels a lot better. He has had a couple of loose bowel movements this morning. No fevers. No nausea. Reason For Visit: PARTIAL SMALL BOWEL OBSTRUCTION, AFIB Physical Exam Vital Signs: Temp Pulse Resp BP Pulse Ox 98.6 F 96 16 129/73 H 96 09/10/18 11:16 09/10/18 11:16 09/10/18 11:16 09/10/18 11:16 09/10/18 11:16 Intake & Output 09/09/18 09/10/18 09/11/18 06:59 06:59 06:59 Intake Total 1200 2337 100 Output Total 1200 1550 Balance 0 787 100 Weight 99.1 kg 99.1 kg General appearance: PRESENT: cooperative, disheveled, mild distress Respiratory exam: PRESENT: clear to auscultation marii, symmetrical, unlabored. ABSENT: accessory muscle use, crackles, prolonged expiratory phas, rhonchi, tachypnea, wheezes Cardiovascular exam: PRESENT: irregular rhythm Pulses: PRESENT: normal carotid pulses Vascular exam: PRESENT: normal capillary refill GI/Abdominal exam: PRESENT: Mildly distended, hypoactive bowel sounds. ABSENT: guarding, rebound, tenderness Extremities exam: ABSENT: clubbing, pedal edema Musculoskeletal exam: PRESENT: normal inspection. ABSENT: deformity Neurological exam: PRESENT: alert, awake, oriented to person, oriented to place, oriented to time, oriented to situation Psychiatric exam: PRESENT: flat affect Skin exam: PRESENT: dry, warm Results Laboratory Results: 09/09/18 05:16 09/09/18 05:16 09/08/18 15:47 Troponin I < 0.012 Impressions: Abdomen/Pelvis CT 09/08/18 00:00 IMPRESSION: 1. Numerous distended small bowel segments and mild to moderate proximal colonic distention, without a definite transition point. The distal small bowel is less distended; this could either be a severe ileus or a partial small bowel obstruction. 2. No perforation or abscess. 3. Hazy densities in both lower lobes, likely subsegmental atelectasis. 4. Other chronic findings as described. Acute Abdomen Series 09/09/18 07:00 IMPRESSION: Findings remain consistent with small bowel obstruction, similar appearance compared to yesterday. Nasogastric tube appropriate. No free air. Assessment and Plan - Diagnosis (1) Afib Qualifiers: Atrial fibrillation type: chronic Qualified Code(s): I48.2 - Chronic atrial fibrillation Is this a current diagnosis for this admission?: Yes Plan: Heart rate is in a good range at this time. He had an episode this morning where it jumped up into the 130s but then it came back down. Can resume Eliquis once he is able to take p.o. (2) Type 2 diabetes mellitus Qualifiers: Diabetes mellitus halfway insulin use: with vermin exterminator use Diabetes mellitus complication status: with hyperglycemia Qualified Code(s): E11.65 - Type 2 diabetes mellitus with hyperglycemia; Z79.4 - skilled nursing (current) use of insulin Is this a current diagnosis for this admission?: Yes Plan: I increased his Lantus little bit this morning. Once he is able to take p.o., we will transition him back over to his usual regimen at home. - Time Time Spent with patient: 15-24 minutes
[2018-09-10 16:19] LABS: ALANINE AMINOTRANSFERASE 32 U/L (21-72); ALBUMIN 3.3 g/dL (3.5-5.0); ALKALINE PHOSPHATASE 45 U/L (38-126); ANION GAP 9 (5-19); ASPARTATE AMINO TRANSFERASE 17 U/L (17-59); BILIRUBIN,DIRECT 0.4 mg/dL (0.0-0.4); BILIRUBIN,TOTAL 0.8 mg/dL (0.2-1.3); BLOOD UREA NITROGEN 13 mg/dL (7-20); CALCIUM 7.9 mg/dL (8.4-10.2); CARBON DIOXIDE 23 mmol/L (22-30); CHLORIDE 103 mmol/L (98-107); GLUCOSE 169 mg/dL (75-110); POTASSIUM 3.8 mmol/L (3.6-5.0); SODIUM 135.3 mmol/L (137-145); TOTAL PROTEIN 5.6 g/dL (6.3-8.2)
[2018-09-10 19:36] LABS: ABSOLUTE LYMPHOCYTES (AUTO) 0.9 10^3/uL (0.5-4.7); ABSOLUTE MONOCYTES (AUTO) 0.5 10^3/uL (0.1-1.4); ABSOLUTE NEUT (AUTO) 3.7 10^3/uL (1.7-8.2); BASOPHILS % (AUTO) 0.5 % (0-2); EOSINOPHILS % (AUTO) 0.8 % (0-6); HEMATOCRIT 37.8 % (37.9-51.0); LYMPHOCYTES % (AUTO) 17.8 % (13-45); MEAN CORPUSCULAR HEMOGLOBIN 28.3 pg (27.0-33.4); MEAN CORPUSCULAR HGB CONC 34.4 g/dL (32.0-36.0); MEAN CORPUSCULAR VOLUME 82 fl (80-97); MONOCYTES % (AUTO) 9.9 % (3-13); PLATELET COUNT 230 10^3/uL (150-450); RED BLOOD COUNT 4.61 10^6/uL (4.35-5.55); RED CELL DISTRIBUTION WIDTH 14.7 % (11.5-14.0); TOTAL CELLS COUNTED % (AUTO) 100 %; WHITE BLOOD COUNT 5.3 10^3/uL (4.0-10.5)
--- NOTE | 2018-09-10 19:39 | PDOC PROGRESS REPORT ---
Subjective Progress Note for:: 09/10/18 Subjective:: no pains Claims liquid stools this am and small amount of flatus last night Reason For Visit: PARTIAL SMALL BOWEL OBSTRUCTION, AFIB Physical Exam Vital Signs: Temp Pulse Resp BP Pulse Ox 99.3 F 107 H 15 132/80 H 96 09/10/18 15:19 09/10/18 15:19 09/10/18 15:19 09/10/18 15:19 09/10/18 15:19 Intake & Output 09/09/18 09/10/18 09/11/18 06:59 06:59 06:59 Intake Total 1200 2337 1200 Output Total 1200 1550 900 Balance 0 787 300 Weight 99.1 kg 99.1 kg Exam: NGT drainage about 800 today Abdomen still distended but soft and non tender Results Laboratory Results: 09/10/18 15:30 Sodium 135.3 L Potassium 3.8 Chloride 103 Carbon Dioxide 23 Anion Gap 9 BUN 13 Creatinine 0.74 Est GFR ( Amer) > 60 Est GFR (Non-Af Amer) > 60 Glucose 169 H Calcium 7.9 L Total Bilirubin 0.8 AST 17 ALT 32 Alkaline Phosphatase 45 Total Protein 5.6 L Albumin 3.3 L 09/08/18 15:47 Troponin I < 0.012 Impressions: Abdomen/Pelvis CT 09/08/18 00:00 IMPRESSION: 1. Numerous distended small bowel segments and mild to moderate proximal colonic distention, without a definite transition point. The distal small bowel is less distended; this could either be a severe ileus or a partial small bowel obstruction. 2. No perforation or abscess. 3. Hazy densities in both lower lobes, likely subsegmental atelectasis. 4. Other chronic findings as described. Acute Abdomen Series 09/09/18 07:00 IMPRESSION: Findings remain consistent with small bowel obstruction, similar appearance compared to yesterday. Nasogastric tube appropriate. No free air. Assessment & Plan - Diagnosis (1) Type 2 diabetes mellitus Qualifiers: Diabetes mellitus oil heaterman insulin use: with jail use Diabetes mellitus complication status: with hyperglycemia Qualified Code(s): E11.65 - Type 2 diabetes mellitus with hyperglycemia; Z79.4 - nursing home (current) use of insulin Is this a current diagnosis for this admission?: Yes (2) Afib Qualifiers: Atrial fibrillation type: chronic Qualified Code(s): I48.2 - Chronic atrial fibrillation Is this a current diagnosis for this admission?: Yes (3) Sleep apnea Is this a current diagnosis for this admission?: Yes - Time Time Spent with patient: 15-24 minutes - Inpatient Certification Medical Necessity: Need Close Monitoring Due to Risk of Patient Decompensation, Need For IV Fluids, Risk of Complication if Not Cared For in Hospital - Plan Summary Plan Summary: Give soap suds enema to try to open up. Claims he had colonoscopy 3 or 4 years ago and had polyps removed. Leave NGT since still considerable drainage. Small bowel series with gastrograffin tomorrow if NGT decreases and not completely opened up Check lytes
[2018-09-10 19:49] LABS: ALANINE AMINOTRANSFERASE 28 U/L (21-72); ALBUMIN 3.3 g/dL (3.5-5.0); ALKALINE PHOSPHATASE 47 U/L (38-126); ANION GAP 9 (5-19); ASPARTATE AMINO TRANSFERASE 17 U/L (17-59); BILIRUBIN,DIRECT 0.3 mg/dL (0.0-0.4); BILIRUBIN,TOTAL 0.8 mg/dL (0.2-1.3); BLOOD UREA NITROGEN 13 mg/dL (7-20); CALCIUM 8.3 mg/dL (8.4-10.2); CARBON DIOXIDE 24 mmol/L (22-30); CHLORIDE 104 mmol/L (98-107); GLUCOSE 162 mg/dL (75-110); POTASSIUM 3.6 mmol/L (3.6-5.0); SODIUM 136.8 mmol/L (137-145); TOTAL PROTEIN 5.7 g/dL (6.3-8.2)
[2018-09-10] MEDS: INSULIN GLARGINE,HUM.REC.ANLOG 1,000 UNIT/10 ML VIAL SUBCUT SCH (22:00)
[2018-09-11] MEDS: HEPARIN SOD (PORCINE) 5,000 UNIT/ML 1 ML SYRINGE SUBCUT SCH ×3 (05:39→23:38)
[2018-09-11] MEDS: ACETAMINOPHEN 1,000 MG/100 ML RTUPB IV SCH ×4 (05:39→17:06)
--- NOTE | 2018-09-11 07:23 | PDOC PROGRESS REPORT ---
Subjective Progress Note for:: 09/11/18 Subjective:: Has BM and flatus this am Reason For Visit: PARTIAL SMALL BOWEL OBSTRUCTION, AFIB Physical Exam Vital Signs: Temp Pulse Resp BP Pulse Ox 99.0 F 103 H 17 142/79 H 97 09/10/18 23:31 09/11/18 02:00 09/10/18 23:31 09/10/18 23:31 09/10/18 23:31 Intake & Output 09/10/18 09/11/18 09/12/18 06:59 06:59 06:59 Intake Total 2337 1300 Output Total 1550 900 Balance 787 400 Weight 99.1 kg 99.1 kg Exam: NGT about 200 ccs from last night Abdomen is less distended, non tender Results Laboratory Results: 09/10/18 19:21 09/10/18 19:21 09/10/18 09/10/18 09/10/18 15:30 19:21 19:21 WBC 5.3 RBC 4.61 Hgb 13.0 L Hct 37.8 L MCV 82 MCH 28.3 MCHC 34.4 RDW 14.7 H Plt Count 230 Seg Neutrophils % 71.0 Lymphocytes % 17.8 Monocytes % 9.9 Eosinophils % 0.8 Basophils % 0.5 Absolute Neutrophils 3.7 Absolute Lymphocytes 0.9 Absolute Monocytes 0.5 Absolute Eosinophils 0.0 Absolute Basophils 0.0 Sodium 135.3 L 136.8 L Potassium 3.8 3.6 Chloride 103 104 Carbon Dioxide 23 24 Anion Gap 9 9 BUN 13 13 Creatinine 0.74 0.76 Est GFR ( Amer) > 60 > 60 Est GFR (Non-Af Amer) > 60 > 60 Glucose 169 H 162 H Calcium 7.9 L 8.3 L Total Bilirubin 0.8 0.8 AST 17 17 ALT 32 28 Alkaline Phosphatase 45 47 Total Protein 5.6 L 5.7 L Albumin 3.3 L 3.3 L 09/08/18 15:47 Troponin I < 0.012 Impressions: Abdomen/Pelvis CT 09/08/18 00:00 IMPRESSION: 1. Numerous distended small bowel segments and mild to moderate proximal colonic distention, without a definite transition point. The distal small bowel is less distended; this could either be a severe ileus or a partial small bowel obstruction. 2. No perforation or abscess. 3. Hazy densities in both lower lobes, likely subsegmental atelectasis. 4. Other chronic findings as described. Acute Abdomen Series 09/09/18 07:00 IMPRESSION: Findings remain consistent with small bowel obstruction, similar appearance compared to yesterday. Nasogastric tube appropriate. No free air. 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
[2018-09-11] MEDS: INSULIN LISPRO 100 UNIT/ML 3 ML VIAL SUBCUT SCH ×5 (08:00→17:04)
[2018-09-11] MEDS: METOPROLOL TARTRATE PF/INJ 5 MG/5 ML SDV IV SCH ×2 (09:26→23:37)
[2018-09-11] MEDS: NORMAL SALINE 1000 ML 1,000 ML IV PRN (10:53)
--- NOTE | 2018-09-11 15:38 | PDOC PROGRESS REPORT ---
Subjective Progress Note for:: 09/11/18 Subjective:: No adverse events overnight. No new complaints. Vital signs are stable. He said the NG tube out today. He said he had a loose bowel movement earlier. Reason For Visit: PARTIAL SMALL BOWEL OBSTRUCTION, AFIB Physical Exam Vital Signs: Temp Pulse Resp BP Pulse Ox 98.3 F 103 H 20 146/82 H 98 09/11/18 12:22 09/11/18 14:00 09/11/18 12:22 09/11/18 12:22 09/11/18 12:22 Intake & Output 09/10/18 09/11/18 09/12/18 06:59 06:59 06:59 Intake Total 2337 2300 Output Total 1550 900 Balance 787 1400 Weight 99.1 kg 99.1 kg General appearance: PRESENT: cooperative, disheveled, mild distress Respiratory exam: PRESENT: clear to auscultation marii, symmetrical, unlabored. ABSENT: accessory muscle use, crackles, prolonged expiratory phas, rhonchi, tachypnea, wheezes Cardiovascular exam: PRESENT: irregular rhythm Pulses: PRESENT: normal carotid pulses Vascular exam: PRESENT: normal capillary refill GI/Abdominal exam: PRESENT: Mildly distended, hypoactive bowel sounds. ABSENT: guarding, rebound, tenderness Extremities exam: ABSENT: clubbing, pedal edema Musculoskeletal exam: PRESENT: normal inspection. ABSENT: deformity Neurological exam: PRESENT: alert, awake, oriented to person, oriented to place, oriented to time, oriented to situation Psychiatric exam: PRESENT: Appropriate affect, normal mood Skin exam: PRESENT: dry, warm Results Laboratory Results: 09/10/18 19:21 09/10/18 19:21 09/10/18 09/10/18 09/10/18 15:30 19:21 19:21 WBC 5.3 RBC 4.61 Hgb 13.0 L Hct 37.8 L MCV 82 MCH 28.3 MCHC 34.4 RDW 14.7 H Plt Count 230 Seg Neutrophils % 71.0 Lymphocytes % 17.8 Monocytes % 9.9 Eosinophils % 0.8 Basophils % 0.5 Absolute Neutrophils 3.7 Absolute Lymphocytes 0.9 Absolute Monocytes 0.5 Absolute Eosinophils 0.0 Absolute Basophils 0.0 Sodium 135.3 L 136.8 L Potassium 3.8 3.6 Chloride 103 104 Carbon Dioxide 23 24 Anion Gap 9 9 BUN 13 13 Creatinine 0.74 0.76 Est GFR ( Amer) > 60 > 60 Est GFR (Non-Af Amer) > 60 > 60 Glucose 169 H 162 H Calcium 7.9 L 8.3 L Total Bilirubin 0.8 0.8 AST 17 17 ALT 32 28 Alkaline Phosphatase 45 47 Total Protein 5.6 L 5.7 L Albumin 3.3 L 3.3 L 09/08/18 15:47 Troponin I < 0.012 Impressions: Abdomen/Pelvis CT 09/08/18 00:00 IMPRESSION: 1. Numerous distended small bowel segments and mild to moderate proximal colonic distention, without a definite transition point. The distal small bowel is less distended; this could either be a severe ileus or a partial small bowel obstruction. 2. No perforation or abscess. 3. Hazy densities in both lower lobes, likely subsegmental atelectasis. 4. Other chronic findings as described. Acute Abdomen Series 09/09/18 07:00 IMPRESSION: Findings remain consistent with small bowel obstruction, similar appearance compared to yesterday. Nasogastric tube appropriate. No free air. Assessment and Plan - Diagnosis (1) Afib Qualifiers: Atrial fibrillation type: chronic Qualified Code(s): I48.2 - Chronic atrial fibrillation Is this a current diagnosis for this admission?: Yes Plan: The NG tube is out now. Once he is able to demonstrate he can reliably take p.o., we can get him back on his metoprolol and his Eliquis. (2) Type 2 diabetes mellitus Qualifiers: Diabetes mellitus watermaster insulin use: with watermaster use Diabetes mellitus complication status: with hyperglycemia Qualified Code(s): E11.65 - Type 2 diabetes mellitus with hyperglycemia; Z79.4 - long-term (current) use of insulin Is this a current diagnosis for this admission?: Yes Plan: NG tube is out. Once he is able to demonstrate he can reliably take p.o., we can get him back on his Humalog 75/25 that he takes at home. - Time Time Spent with patient: 15-24 minutes
[2018-09-11] MEDS: INSULIN GLARGINE,HUM.REC.ANLOG 1,000 UNIT/10 ML VIAL SUBCUT SCH (23:39)
[2018-09-12] MEDS: ACETAMINOPHEN 1,000 MG/100 ML RTUPB IV SCH (05:55)
[2018-09-12] MEDS: INSULIN LISPRO 100 UNIT/ML 3 ML VIAL SUBCUT SCH ×2 (05:55→06:11)
[2018-09-12] MEDS: HEPARIN SOD (PORCINE) 5,000 UNIT/ML 1 ML SYRINGE SUBCUT SCH (06:05)
[2018-09-12 09:26] VITALS: BP 155/99
[2018-09-12] MEDS: METOPROLOL TARTRATE PF/INJ 5 MG/5 ML SDV IV SCH (09:46)
--- NOTE | 2018-09-12 09:46 | PDOC DISCHARGE SUMMARY ---
General - Admit/Disc Date/PCP Admission Date/Primary Care Provider: 09/08/18 22:51 Discharge Date: 09/12/18 - Discharge Diagnosis (1) Small bowel obstruction Is this a current diagnosis for this admission?: Yes - Additional Information Discharge Diet: As Tolerated Discharge Activity: Activity As Tolerated Home Medications: Apixaban [Eliquis 5 mg Tablet] 5 mg PO DAILY 09/09/18 Fenofibrate,Micronized [Fenofibrate] 130 mg PO DAILY 09/09/18 Insulin Lispro Protamin/Lispro [Humalog Mix 75-25 100 unit/mL] 50 unit SUBCUT BID 09/09/18 Losartan Potassium [Cozaar 50 mg Tablet] 50 mg PO DAILY 09/09/18 Mesalamine [Apriso ER 0.375 gm Cap.sr] 1.5 gm PO DAILY 09/09/18 Metoprolol Succinate [Toprol Xl 50 mg Tab.sr] 50 mg PO DAILY 09/09/18 Terazosin HCl [Hytrin] 5 mg PO DAILY 09/09/18 History of Present Illness History of Present Illness: ELSIE RIVERA is a 78 year old male admitted with a small bowel obstruction. Patient was taken to the floor in stable condition. An NG tube was inserted, and decompression was initiated. Hospital Course Hospital Course: The patient was admitted to the floor. NG tube decompression was initiated. The patient's symptoms resolved. He began passing flatus and having bowel movements. He also began tolerating a diet. By 09/12/2018, the patient was ambulating, tolerating liquids, feeling well, and requesting discharge home. At this time it is felt that he had reached maximal hospital benefit, and was fit for discharge. Physical Exam Vital Signs: Temp Pulse Resp BP Pulse Ox 97.8 F 144 H 20 155/99 H 98 09/12/18 08:00 09/12/18 08:00 09/12/18 08:00 09/12/18 08:00 09/12/18 08:00 Intake & Output 09/11/18 09/12/18 09/13/18 06:59 06:59 06:59 Intake Total 2300 458 Output Total 900 Balance 1400 458 Weight 99.1 kg 99.1 kg Results Laboratory Results: 09/10/18 19:21 09/10/18 19:21 09/08/18 15:47 Troponin I < 0.012 Impressions: Abdomen/Pelvis CT 09/08/18 00:00 IMPRESSION: 1. Numerous distended small bowel segments and mild to moderate proximal colonic distention, without a definite transition point. The distal small bowel is less distended; this could either be a severe ileus or a partial small bowel obstruction. 2. No perforation or abscess. 3. Hazy densities in both lower lobes, likely subsegmental atelectasis. 4. Other chronic findings as described. Acute Abdomen Series 09/09/18 07:00 IMPRESSION: Findings remain consistent with small bowel obstruction, similar appearance compared to yesterday. Nasogastric tube appropriate. No free air. Qualifiers - * PATIENT BEING DISCHARGED WITH ANY OF THE FOLLOWING DIAGNOSIS: No Plan Discharge Plan: Discharge home. Diet as tolerated. Activity: As tolerated. Follow-up with [facility] as needed. Return to the hospital if symptoms return. Time Spent: Less than 30 Minutes
== END 2018-09-12 10:48 | disposition home or self-care (01) | DRG 390 ==
LOC: ER 14:36 → EH 22:51 → 4N 09-09 00:30
PROVIDERS: ADMIT Surgery; ATTEND Surgery
DX: K56.600 Partial intestinal obstruction, unspecified as to cause (principal); I48.2 Chronic atrial fibrillation; E11.65 Type 2 diabetes mellitus with hyperglycemia; I10 Essential (primary) hypertension; G47.30 Sleep apnea, unspecified; Z79.01 Long term (current) use of anticoagulants; Z79.4 Long term (current) use of insulin; Z87.891 Personal history of nicotine dependence; Z91.013 Allergy to seafood; Z90.49 Acquired absence of other specified parts of digestive tract
CPT/HCPCS: 36415; 74022; 74177; 80053; 81001; 82962; 83690; 84484; 85025; 85610; 85730; 93005; 93010; 96361; 96374; 99285; J0131; J1644; J1815; J2270; J2405; J3490; J7030